=== PATIENT | male | born 1950 | race Caucasian/White ===

== ENCOUNTER 2023-07-15 07:31 | Inpatient (IN) | payer MEDICARE ==
[~2023-07-15] VITALS: Ht 165.1 cm; Wt 75.0 kg
[2023-07-15 07:55] LABS: BASOPHILS # (AUTO) 0.1 X10'3 (0-0.2); BASOPHILS % (AUTO) 0.6 % (0-1); EOSINOPHILS % (AUTO) 0.2 % (0-6); HEMATOCRIT 44.6 % (42.0-52.0); HEMOGLOBIN 15.3 g/dl (14.0-17.9); LYMPHOCYTES % (AUTO) 11.1 % (21-51); MEAN CORPUSCULAR HEMOGLOBIN 32.2 PG (27.0-31.0); MEAN CORPUSCULAR HGB CONC 34.3 g/dL (33.0-36.5); MEAN PLATELET VOLUME 9.2 FL (7.4-10.4); MONOCYTES % (AUTO) 10.9 % (2-12); NEUTROPHILS # (AUTO) 6.8 X10'3 (1.8-7.7); NEUTROPHILS % (AUTO) 77.2 % (42-75); PLATELET COUNT 198 X10'3 (140-440); RED BLOOD COUNT 4.74 X10'6 (4.70-6.10); RED CELL DISTRIBUTION WIDTH 13.5 % (11.5-14.5); WHITE BLOOD COUNT 8.7 X10'3 (4.5-11.0)
[2023-07-15 08:13] LABS: ALANINE AMINOTRANSFERASE 18 U/L (12-78); ALBUMIN 3.7 G/DL (3.4-5.0); ALKALINE PHOSPHATASE 63 IU/L (46-116); ANION GAP 9 (8-16); ASPARTATE AMINO TRANSFERASE 21 U/L (10-37); BILIRUBIN,TOTAL 0.8 MG/DL (0.1-1.0); BLOOD UREA NITROGEN 13 MG/DL (7-18); BUN/CREATININE RATIO 12.1 (10.0-20.0); CALCIUM 8.8 MG/DL (8.5-10.1); CHLORIDE 98 MMOL/L (99-107); CREATININE 1.07 MG/DL (0.60-1.10); GLUCOSE 126 MG/DL (70-104); POTASSIUM 4.2 MMOL/L (3.5-5.1); SODIUM 133 MMOL/L (135-145); TOTAL CARBON DIOXIDE 26.3 MMOL/L (24-32); TOTAL PROTEIN 7.4 G/DL (6.4-8.2); eCRCL 53 ML/MIN; eGFR 68 ML/MIN
--- NOTE | 2023-07-15 08:49 | NUR ---
MSE COMPLETED BY DR BOYLE
[2023-07-15] MEDS ORDERED: nitroGLYCERIN 1gm ointment UD TP ONE ×2 (09:25→14:35)
[2023-07-15] MEDS ORDERED: aspirin 325mg tablet PO ONE (09:25)
[2023-07-15] MEDS ORDERED: iohexol 300mg/ml 100ml inj. ONE (09:40)
[2023-07-15] MEDS ORDERED: HYDROcodone/acetaminophen 5mg/325mg tablet PO PRN (10:05)
[2023-07-15] MEDS ORDERED: HYDROcodone/acetaminophen 10/325mg tab PO PRN (10:05)
[2023-07-15] MEDS ORDERED: magnesium hydroxide 30ml (MOM) UD suspension PO PRN (10:05)
[2023-07-15] MEDS ORDERED: metoprolol tartrate 1mg/ml inj IV PRN (10:05)
[2023-07-15] MEDS ORDERED: regadenoson 0.4mg/5ml syringe IV PRN (10:05)
[2023-07-15] MEDS ORDERED: magnesium 2GM in 50ml NS 50 ML IV PRN (10:05)
[2023-07-15] MEDS ORDERED: mag hydrox/Alum hydrox/simeth 30ml oral suspension PO PRN (10:05)
[2023-07-15] MEDS ORDERED: morphine 2 MG/ML inj. syringe IV PRN (10:05)
[2023-07-15] MEDS ORDERED: acetaminophen 325mg tablet PO PRN (10:05)
[2023-07-15] MEDS ORDERED: potassium Cl 20 mEq SR tablet PO PRN ×2 (10:05)
[2023-07-15] MEDS ORDERED: nitroGLYCERIN 0.4mg SUBLingual tab SL PRN (10:05)
[2023-07-15] MEDS ORDERED: aminophylline 250mg/10ml inj. IV PRN (10:05)
[2023-07-15] MEDS ORDERED: potassium Cl 40MEQ/1/2NS 520ml 520 ML IV PRN (10:05)
[2023-07-15] MEDS ORDERED: magnesium Cl slow-release 64mg tablet PO PRN (10:05)
[2023-07-15] MEDS ORDERED: ondansetron/PF 4mg/2ml inj IV PRN (10:05)
[2023-07-15] MEDS ORDERED: magnesium 4gm in 100ml NS 100 ML IV PRN (10:05)
--- NOTE | 2023-07-15 10:59 | NUR ---
SPOKE TO NUCLEAR MEDICINE. PT HAD COFFEE AT 0700. STRESS TEST TO BE COMPLETED TOMORROW.
[2023-07-15] MEDS ORDERED: MULT-1085 PO (16:54)
[2023-07-15 19:00] VITALS: BP 120/62; PULSE 76; RESP 16; TEMP 98.1; O2SAT 100
[2023-07-15] MEDS: K and/or MAG REPLACEMENT MC SCH (20:00)
[2023-07-15] MEDS: docusate sod 100mg capsule PO SCH (20:00)
--- NOTE | 2023-07-15 20:00 | NUR ---
Report received from Debra RIVERA. Pt arrived to unit at 1900 via wheel chair. Pt ambulated to bed. and neighbors present in room. Pt placed on tele, vitals taken, MRSA swab collected, siderails x2, BLL, call araujo within reach. Pt stable at arrival on unit
[2023-07-15 22:00] VITALS: BP 105/56; PULSE 82; RESP 18; TEMP 97.4; O2SAT 95
[2023-07-16] VITALS (15 sets, daily range): BP systolic 92–115; BP diastolic 59–82; PULSE 62–182; RESP 16–22; TEMP 97.7–98.6; O2SAT 95–99
--- NOTE | 2023-07-16 01:26 | NUR ---
Page sent to for CP and tachycardia PAGER ID: [phone] MESSAGE: [id number] Gil Reynolds. Pt is complaining of chest pain 5/10 mid sternal and spreading towards bilateral chest. Pt HR is in the 170-180s sustaining. EKG performed, please advise. Thank you, Laine RIVERA [phone]
[2023-07-16] MEDS ORDERED: diltiazem-NS 100mg/100ml 100 ML IV SCH (02:00)
--- NOTE | 2023-07-16 04:00 | NUR ---
Pt was informed to use the urinal for now until we get his HR under control with the cardizem. Pt understands and agrees
--- NOTE | 2023-07-16 06:56 | NUR ---
Problems reprioritized. Patient report given, questions answered & plan of care reviewed with Alexa RN.
[2023-07-16] MEDS: docusate sod 100mg capsule PO SCH ×2 (08:00→21:28)
[2023-07-16] MEDS ORDERED: enoxaparin 40mg/0.4ml syringe SUBCUT SCH (08:00)
[2023-07-16] MEDS: K and/or MAG REPLACEMENT MC SCH ×2 (08:00→20:00)
[2023-07-16 09:27] LABS: BASOPHILS % (AUTO) 0.3 % (0-1); EOSINOPHILS % (AUTO) 0.1 % (0-6); HEMATOCRIT 41.9 % (42.0-52.0); HEMOGLOBIN 14.7 g/dl (14.0-17.9); LYMPHOCYTES # (AUTO) 1.2 X10'3 (1.1-4.8); LYMPHOCYTES % (AUTO) 10.3 % (21-51); MEAN CORPUSCULAR HEMOGLOBIN 32.8 PG (27.0-31.0); MEAN CORPUSCULAR HGB CONC 35.1 g/dL (33.0-36.5); MEAN CORPUSCULAR VOLUME 93.6 FL (78-98); MEAN PLATELET VOLUME 10.3 FL (7.4-10.4); MONOCYTES # (AUTO) 1.3 X10'3 (0-0.9); MONOCYTES % (AUTO) 11.2 % (2-12); NEUTROPHILS # (AUTO) 9.3 X10'3 (1.8-7.7); NEUTROPHILS % (AUTO) 78.1 % (42-75); PLATELET COUNT 202 X10'3 (140-440); RED BLOOD COUNT 4.47 X10'6 (4.70-6.10); RED CELL DISTRIBUTION WIDTH 13.6 % (11.5-14.5); WHITE BLOOD COUNT 11.9 X10'3 (4.5-11.0)
[2023-07-16 10:07] LABS: ALANINE AMINOTRANSFERASE 17 U/L (12-78); ALBUMIN 3.2 G/DL (3.4-5.0); ALBUMIN/GLOBULIN RATIO 0.9 (1.1-1.5); ALKALINE PHOSPHATASE 63 IU/L (46-116); ANION GAP 11 (8-16); ASPARTATE AMINO TRANSFERASE 22 U/L (10-37); BILIRUBIN,TOTAL 1.1 MG/DL (0.1-1.0); BLOOD UREA NITROGEN 17 MG/DL (7-18); BUN/CREATININE RATIO 15.7 (10.0-20.0); CALCIUM 8.6 MG/DL (8.5-10.1); CHLORIDE 98 MMOL/L (99-107); CREATININE 1.08 MG/DL (0.60-1.10); GLUCOSE 134 MG/DL (70-104); MAGNESIUM 2.2 MG/DL (1.5-2.4); POTASSIUM 3.9 MMOL/L (3.5-5.1); SODIUM 133 MMOL/L (135-145); TOTAL CARBON DIOXIDE 24.4 MMOL/L (24-32); TOTAL PROTEIN 6.8 G/DL (6.4-8.2); eCRCL 53 ML/MIN; eGFR 67 ML/MIN
--- NOTE | 2023-07-16 12:35 | NUR ---
PAGER ID: [phone] MESSAGE: ROOM 28A MR ZELAYA CONVERTED TO NSR AT 1216 ON 5MG OF CARDIZEM GTT! PLEASE ADVISE - GERSON RIVERA [phone]
[2023-07-16] MEDS: diltiazem 30mg tablet PO SCH ×2 (13:33→21:28)
[2023-07-16] MEDS ORDERED: metoprolol tartrate 12.5mg (1/2 tablet) PO SCH (20:00)
[2023-07-16] MEDS: apixaban 5mg tablet PO SCH (21:28)
[2023-07-17] VITALS (9 sets, daily range): BP systolic 93–118; BP diastolic 47–67; PULSE 60–87; RESP 16–18; TEMP 97.9; O2SAT 95–98
[2023-07-17] MEDS: diltiazem 30mg tablet PO SCH ×2 (02:48→11:30)
--- NOTE | 2023-07-17 06:23 | NUR ---
Patient report given, questions answered & plan of care reviewed with Alexa RN
[2023-07-17 07:32] LABS: BASOPHILS % (AUTO) 0.6 % (0-1); EOSINOPHILS # (AUTO) 0.1 X10'3 (0-0.9); EOSINOPHILS % (AUTO) 0.9 % (0-6); HEMATOCRIT 40.3 % (42.0-52.0); HEMOGLOBIN 13.9 g/dl (14.0-17.9); LYMPHOCYTES # (AUTO) 0.9 X10'3 (1.1-4.8); LYMPHOCYTES % (AUTO) 15.7 % (21-51); MEAN CORPUSCULAR HEMOGLOBIN 32.4 PG (27.0-31.0); MEAN CORPUSCULAR HGB CONC 34.4 g/dL (33.0-36.5); MEAN CORPUSCULAR VOLUME 94.1 FL (78-98); MEAN PLATELET VOLUME 9.7 FL (7.4-10.4); MONOCYTES # (AUTO) 0.7 X10'3 (0-0.9); MONOCYTES % (AUTO) 12.9 % (2-12); NEUTROPHILS % (AUTO) 69.9 % (42-75); PLATELET COUNT 193 X10'3 (140-440); RED BLOOD COUNT 4.28 X10'6 (4.70-6.10); RED CELL DISTRIBUTION WIDTH 13.6 % (11.5-14.5); WHITE BLOOD COUNT 5.7 X10'3 (4.5-11.0)
[2023-07-17 07:54] LABS: ALANINE AMINOTRANSFERASE 22 U/L (12-78); ALBUMIN/GLOBULIN RATIO 0.8 (1.1-1.5); ALKALINE PHOSPHATASE 56 IU/L (46-116); ANION GAP 8 (8-16); ASPARTATE AMINO TRANSFERASE 22 U/L (10-37); BILIRUBIN,TOTAL 0.8 MG/DL (0.1-1.0); BLOOD UREA NITROGEN 19 MG/DL (7-18); BUN/CREATININE RATIO 18.1 (10.0-20.0); CALCIUM 8.7 MG/DL (8.5-10.1); CHLORIDE 102 MMOL/L (99-107); CREATININE 1.05 MG/DL (0.60-1.10); GLUCOSE 118 MG/DL (70-104); MAGNESIUM 2.2 MG/DL (1.5-2.4); POTASSIUM 4.1 MMOL/L (3.5-5.1); SODIUM 136 MMOL/L (135-145); TOTAL CARBON DIOXIDE 26.3 MMOL/L (24-32); TOTAL PROTEIN 6.7 G/DL (6.4-8.2); eCRCL 55 ML/MIN; eGFR 69 ML/MIN
--- NOTE | 2023-07-17 08:10 | NUR ---
PT TO NUC MED IN WHEEL CHAIR
[2023-07-17] MEDS ORDERED: DILT-36 PO (08:26)
[2023-07-17] MEDS ORDERED: LOP12.5T PO ×2 (08:26→12:43)
[2023-07-17] MEDS ORDERED: regadenoson 0.4mg/5ml syringe IV ONE (08:35)
--- NOTE | 2023-07-17 10:59 | NUR ---
PAGER ID: [phone] MESSAGE: GOOD MORNING - 28A MR ZELAYA - VINNIE RESULTS ARE IN - LOOKS NEGATIVE - STILL IN NSR - DISCHARGE? PLEASE ADVISE - THX GERSON TELE [phone]
[2023-07-17] MEDS: apixaban 5mg tablet PO SCH (11:29)
[2023-07-17] MEDS ORDERED: APIX5TAB3 PO (12:34)
--- NOTE | 2023-07-17 13:43 | NUR ---
PT DC'D HOME. ALL DC INSTRUCTIONS EXPLAINED TO PATIENT WITH BOTH AND PATIENT VERBALIZING UNDERSTANDING REGARDING PLAN OF CARE. UNABLE TO TRANSMIT PRESCRIPTIONS ELECTRONICALLY, FAXED THEM INSTEAD. PT UP TO 3 NEW MEDICATIONS. INSTRUCTION TO TAKE BLOOD PRESSURE AND HEART RATE, LOG BOTH AND TAKE TO ALL FOLLOW UP DOCTOR APPTS. EDUCATED ON THE IMPORTANCE OF ADHERANCE TO MEDICATIONS BUT ALSO TO BE CAREFUL AND MONITOR HR TAKING 2 MEDICATIONS THAT LOWER HEART RATE COULD GET TOO LOW WHEN PATIENT IS IN NSR. PT CHEMICALLY CONVERTED YESTERDAY AND HAS BEEN IN NSR SINCE. PT LEFT WALKING ON FOOT, A/OX4 VSS FEELING GREAT
== END 2023-07-17 13:42 | disposition home or self-care (01) | DRG 310 ==
LOC: ER 07:32 → ED HOLD 10:09 → PCU 3S 19:09
PROVIDERS: ADMIT Internal Medicine; ATTEND Internal Medicine
PROC: 4A02XM4 Measurement of Cardiac Total Activity, External Approach (ICD-10-PCS; principal; 2023-07-17)
PROC: 3E073KZ Introduction of Other Diagnostic Substance into Coronary Artery, Percutaneous Approach (ICD-10-PCS; 2023-07-17)
DX: I48.0 Paroxysmal atrial fibrillation (principal); Z88.0 Allergy status to penicillin; Z88.5 Allergy status to narcotic agent; Z87.891 Personal history of nicotine dependence
CPT/HCPCS: 36415; 71045; 71260; 78452; 80053; 83735; 83880; 84484; 85025; 87081; 93017; 93306; 99285; A6258; A9500; G0378; J1650; J2785; J3490; Q9967